=== PATIENT | female | born 1985 | race Caucasian/White ===

== ENCOUNTER 2023-06-23 09:33 | Emergency (ER) | payer MEDICAID, SELFPAY ==
[2023-06-23 09:33] VITALS: BP 130/63; PULSE 67; RESP 14; TEMP 36.1; O2SAT 97; BMI 26.9
--- NOTE | 2023-06-23 10:00 | RAD_ITS ---
STUDY: X-RAY CHEST REASON FOR EXAM: Female, 38 years old. Chest wall pain TECHNIQUE: PA and lateral views of the chest. COMPARISON: None. FINDINGS: The lungs are clear and expanded. There is no demonstrated pleural abnormality. Normal size heart. Normal mediastinum and letty. Normal visualized pulmonary arteries. Normal visualized aortic arch and descending thoracic aorta. Normal visualized thoracic spine. Normal visualized ribs, clavicles, and shoulders. There is no demonstrated abnormality of the visualized soft tissue structures of the upper abdomen. RAD/Chest PA and Lateral IMPRESSION: Normal x-ray examination of the chest. Electronically Signed: Alphonso Marquez MD at 10:25 EDT ,
--- NOTE | 2023-06-23 10:06 | ED.VIS.CHEST ---
HPI History of Present Illness Chief Complaint: Fall Informant: patient Onset/Context/Timing Onset: Days Activity at onset: sudden Timing: Continuous Quality: Positive for Sharp and Stabbing Location: Right Chest Current Severity: Moderate Maximum Severity: Moderate Worsened By: Movement of Arm, Movement of Torso and Breathing Relieved By: Remaining Still Associated Symptoms: Negative for Nausea, Vomiting, Diaphoresis, Dyspnea, Cough, Fever, Lightheadedness, Acid Reflux or Palpitations Narrative Narrative: 38-year-old female no seen past medical history. Slipped and fell in the shower on Saturday night about 7:00 injuring her right lateral rib cage. No prior history. Did not hit her head. No LOC. Denies other complaints. Hurts to move or take a deep breath. Prior Similar Symptoms: No CVD Risk Factors: Negative for Hypertension or Diabetes PE Risk Factors: Negative for Recent Travel/Surgery, Recent Immobilization, Prior DVT or PE, Cancer or OCP + Smoking + >/=35 TAD Risk Factors: Negative for Marfan's Syndrome PFSH PFSH Medical History no medical history no medical history Home Medications naproxen 500 mg tablet 500 mg PO BID PRN #20 tabs 11/03/15 [Rx Last Taken Unknown] Allergy/AdvReac Type Severity Reaction Status Date / Time No Known Allergies Allergy Verified 06/23/23 09:33 Social History Smoking Status: Current every day smoker tobacco type: cigarettes ROS ROS ED ROS Narrative Denies recent illness. Review of Systems ROS Unobtainable: Denies due to encephalopathy Constitutional Constitutional ED: Denies chills or fever(s) Eyes Eyes: Reports none ENT ENT ED: Denies ear pain Cardiovascular Cardiovascular: Reports chest pain Respiratory/Chest Respiratory/Chest: Denies cough or dyspnea Gastrointestinal Gastrointestinal: Denies abdominal pain Genitourinary Genitourinary ED: Denies dysuria or hematuria Musculoskeletal Musculoskeletal: Denies arthralgias, back pain or myalgias Integumentary Denies abscess or Abrasions Neurologic Neurologic: Denies headache(s) Psychiatric Psychiatric: Denies anxiety Endocrine Endocrinology: Denies cold intolerance Hematologic/Lymphatic Hematologic/Lymphatic: Denies easy bleeding, easy bruising or lymphadenopathy Allergic/Immunologic Allergic/Immunologic ED: Denies mouth swelling, tongue swelling or urticaria EXAM Physical Exam Narrative Exam Narrative: Well-appearing 38-year-old female. Vital signs stable afebrile. Pulse ox 97% on room air no hypoxia. She is standing as I enter the room. HEENT exam pupils round react to light. No facial or head or scalp trauma. C-spine and neck nontender. Thoracic and lumbar spine nontender. Right posterior lateral ribs are tender to palpation. Lungs clear to auscultation bilaterally. Heart regular rhythm rate about 70 no murmur. Anterior chest wall nontender. She has tenderness along her right lateral chest wall mid axillary line. There is a linear bruise along the bottom of her right lowest rib. There is no crepitance or subcu air. There is tenderness to palpation. Left rib cage nontender. Sternum nontender. Abdomen soft nontender. No peritoneal signs. The right upper and lower quadrants are nontender. Pelvic girdle intact. Moving all 4 extremities. Nontender no deformity. Normal range of motion. Normal strength and sensation. Neurologically she is awake and alert with no focal motor deficits. GCS 15. Const Vital Signs: 06/23/23 09:33 06/23/23 10:02 Temperature 97 F L Temperature Source Temporal Pulse Rate 67 Respiratory Rate 14 Respiratory Effort Normal Respiratory Depth Normal Respiratory Pattern Normal Blood Pressure 130/63 H Blood Pressure Mean 85 Pulse Ox 97 Oxygen Delivery Method Room Air Room Air Positive well nourished and well developed; Negative for obese, cachectic, contractures or unkempt General Appearance ED: well developed and NAD; Negative for unkempt, cachectic, contractures or pallor Nutritional Appearance: Negative for cachectic or obese HEENT Reports moist mucous membranes; Denies dry mucous membranes normocephalic and atraumatic; Negative for trauma or tenderness Mouth ED: No dry mucous membranes Mouth: No dry mucous membranes Eyes PERRL and EOMs intact bilaterally General Eye ED: Negative for pale conjunctiva or scleral icterus Neck no lymphadenopathy, supple and no JVD General: Negative for tenderness Chest Wall inspection of chest normal; Negative for palpation of chest normal Chest Narrative: Tenderness right lateral chest wall. Linear bruise along the right lowest rib cage. No crepitance or subcu air. Chest: tenderness Resp normal respiratory effort and clear to auscultation bilaterally Effort and Inspection: Negative for respiratory distress Auscultation: Negative for rales, rhonchi or wheezes Cardio regular rate, regular rhythm, S1 normal heart sound, S2 normal heart sound and no murmurs Rate: Negative for bradycardia or tachycardic Rhythm: Negative for abnormal rhythm GI normal to inspection, nondistended, normoactive bowel sounds, soft to palpation, non-tender, non-distended and no masses Auscultation: Negative for hyperactive bowel sounds Palpation: Negative for splenomegaly or mass Back/Spine no CVA tenderness and no thoracic nor lumbar tenderness General Back: Negative for CVA tenderness Cervical Spine: Negative for cervical spine tenderness Extremity normal to inspection General Extremety ED: Negative for edema, pulses abnormal or tenderness General Extremity: Negative for edema or pulses abnormal Neuro oriented x3 and CN's II-XII intact bilaterally Sensorium / Orientation: awake, alert, oriented to person, oriented to place and oriented to time; Negative for confused, lethargic or stuporous Motor Exam: strength 5/5 throughout; Negative for general weakness Psych mental status grossly normal Appearance: Negative for unkempt Attitude: No agitated Mood & Affect: Negative for depressed, anxious or tearful Skin no rashes or lesions noted and no wounds General Skin Exam: Negative for jaundice or pallor Rashes: No rashes noted Trauma: Negative for abrasion or laceration Image ED - Body Diagram Man: 1. Tenderness along the right lateral rib cage along the mid axillary line. 2. Same. MDM MDM MDM Narrative Medical decision making narrative: 38-year-old female slipped and fell in the shower Saturday night. Complaining of right lateral rib cage pain. Chest x-ray being obtained. Patient took ibuprofen prior to arrival did not want a thing for pain at this time. Repeat exam no change. Patient I went over x-ray. I showed her rib fracture. We did discuss possibility of other fractures that are being seen on the x-ray. She did not want narcotic pain medication. She will continue use ibuprofen and Tylenol. Ice to the area. Pillow to support the fractured rib. She requested a work excuse for light duty at work. 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 Radiography Chest X-Ray - ED: 2 View, Read by ED Physician, Heart, Lungs, Mediastinum, Chronic Changes and Right Rib Fx Diagnostic Testing: Chest x-ray, 2 views, AP lateral, interpreted by myself shows at least 1 right lower rib fracture distally on the lateral view. No pneumothorax. No hemothorax. No obvious other bony abnormalities. I did go over the x-ray with the patient. Discharge Plan Triage Chief Complaint: Fall ED Provider: Jeronimo Cox Dx/Rx/DC Orders Clinical Impression: Right rib fracture, Fall Instructions: ED Rib Fracture Prescriptions: No Action naproxen 500 MG tablet 500 mg PO BID PRN Qty: 20 0RF Primary Care Provider: Koki Butler Referrals: Koki Butler MD [Primary Care Provider] - As Needed Activity Restrictions/Additional Instructions: You have at least 1 fractured rib on the right lower side. Ice to the area. Motrin Advil or ibuprofen 600 mg 3-4 times a day. Tylenol in between. Use a pillow to support the rib. Or tape that area. This will take several weeks to begin to heal. The pain should progressively improve. If you develop significant shortness of breath you need to return to ensure you did not have a collapsed lung. You do not at this time. Light duty at work. Disposition Disposition: Home, Self Care
[2023-06-23 10:46] VITALS: BP 131/79; PULSE 58; RESP 18; TEMP 36.2; O2SAT 99
== END 2023-06-23 10:46 | disposition home or self-care (01) ==
LOC: ED 10:39
PROVIDERS: Emergency Provider Emergency Medicine; PCP Internal Medicine; Visit Provider Emergency Medicine
DX: S22.31XA Fracture of one rib, right side, initial encounter for closed fracture (principal); F17.210 Nicotine dependence, cigarettes, uncomplicated; W18.2XXA Fall in (into) shower or empty bathtub, initial encounter
CPT/HCPCS: 71046; 99282

== ENCOUNTER 2023-07-31 10:50 | Emergency (ER) | payer MEDICAID, SELFPAY ==
[2023-07-31 10:50] VITALS: BP 128/90; PULSE 79; RESP 18; TEMP 36.1; O2SAT 100; BMI 26.9
--- NOTE | 2023-07-31 11:05 | EKG12_ITS ---
Test Reason : CP Blood Pressure : / mmHG Vent. Rate : 077 BPM Atrial Rate : 077 BPM P-R Int : 132 ms QRS Dur : 084 ms QT Int : 366 ms P-R-T Axes : 053 044 028 degrees QTc Int : 414 ms Normal sinus rhythm Normal ECG When compared with ECG of 03-NOV-2015 13:32, No significant change was found Confirmed by Spenser Swartz ([id number]), business editor KAYCE MASSEY ([id number]) on 08/06/2023 8:05:05 AM Referred By: JERRELL/TA Confirmed By:Spenser Swartz
--- NOTE | 2023-07-31 11:06 | ED.VIS.CHEST ---
HPI History of Present Illness Chief Complaint: Chest Pain Detail of Chief Complaint: Onset yesterday while at work Informant: patient Onset/Context/Timing Onset: Today and Yesterday Activity at onset: sudden Timing: Intermittent and Waxes and wanes Quality: Positive for Aching Location: Left Parasternal (Concerned because of tingling in left hand today.) Current Severity: Mild Maximum Severity: Moderate Worsened By: Nothing Relieved By: Nothing Associated Symptoms: Negative for Nausea, Vomiting, Diaphoresis, Dyspnea, Cough, Fever, Lightheadedness, Acid Reflux or Palpitations Narrative Narrative: Patient 38-year-old woman. Patient is concerned because of chest pain that she had yesterday at work. She felt her body was not its normal self. She had a nurse at work to check her blood pressure and was sunitha high . Pressure was 154/92. She states normally her pressure is much lower. She denies headache. She did complain of light sensitivity. She denied double vision blurred vision. She denies ringing or ears decreased hearing. No trouble speech or swallowing. She denies neurologic symptoms. Patient states she quit smoking 6 months ago. Maternal grandfather had massive SC at the age of 52. Patient states she is active now. She denies symptoms while she is active i.e. running etc. Prior Similar Symptoms: No Recent Illness/Hospitalization: No CVD Risk Factors: Positive for Smoking (Former smoker, quit 6 months ago); Negative for Hypertension, Diabetes, Hypercholesterolemia or Family History 1' </=55 PE Risk Factors: Negative for Recent Travel/Surgery, Recent Immobilization, Prior DVT or PE, Cancer or OCP + Smoking + >/=35 TAD Risk Factors: Negative for Marfan's Syndrome, Hypertension or Family History PFSH PFSH Home Medications ?Medication ?Instructions ?Recorded ?Last Taken ?Type naproxen 500 mg tablet 500 mg PO BID PRN #20 tabs 11/03/15 Unknown Rx Allergy/AdvReac Type Severity Reaction Status Date / Time No Known Allergies Allergy Verified 07/31/23 10:50 Social History (Updated 07/31/23 @ 11:[address] Blanco Ayala MD) Smoking Status: Former smoker substance use type: does not use ROS ROS ED Constitutional Constitutional ED: Denies chills, fever(s), subjective or sweats Eyes Eyes: Reports none ENT ENT ED: Denies rhinorrhea or sore throat Cardiovascular Cardiovascular: Reports as per HPI; Denies orthopnea or paroxysmal nocturnal dyspnea Respiratory/Chest Respiratory/Chest: Denies cough, dyspnea, dyspnea on exertion, orthopnea or paroxysmal nocturnal dyspnea Gastrointestinal Gastrointestinal: Denies abdominal pain, melena, nausea or vomiting Musculoskeletal Musculoskeletal: Denies arthralgias, back pain, myalgias or neck pain Integumentary Denies rash Neurologic Neurologic: Reports paresthesias LUE Psychiatric Psychiatric: Reports anxiety Hematologic/Lymphatic Hematologic/Lymphatic: Denies easy bleeding or easy bruising EXAM Physical Exam Const Vital Signs: 07/31/23 10:50 07/31/23 11:14 Temperature 96.9 F L Temperature Source Temporal Pulse Rate 79 Respiratory Rate 18 Blood Pressure 128/90 H Blood Pressure Mean 102 Pulse Ox 100 Oxygen Delivery Method Room Air Positive well nourished and well developed General Appearance ED: well developed and NAD; Negative for pallor HEENT Reports moist mucous membranes normocephalic and atraumatic Eyes PERRL and EOMs intact bilaterally General Eye ED: Negative for pale conjunctiva or scleral icterus Neck no lymphadenopathy, supple and no JVD Chest Wall palpation of chest normal Resp normal respiratory effort and clear to auscultation bilaterally Cardio regular rate, regular rhythm, S1 normal heart sound, S2 normal heart sound and no murmurs GI normal to inspection, nondistended, normoactive bowel sounds, soft to palpation, non-tender and non-distended; Negative for hepatosplenomegaly Back/Spine no CVA tenderness Neuro oriented x3 and CN's II-XII intact bilaterally Sensorium / Orientation: awake and alert Psych mental status grossly normal Skin no rashes or lesions noted and no wounds General Skin Exam: Negative for jaundice or pallor Heart Score History: Slightly/Non-Suspicious ECG: Normal Age: </= 45 years Risk Factors: 1 or 2 Risk Factors Score: 1 MDM MDM MDM Narrative Medical decision making narrative: Differential diagnosis is cardiac versus noncardiac. Noncardiac would be musculoskeletal, pain of unknown etiology, pulmonary, GI. Will obtain EKG, troponin with 2-hour troponin. Will obtain BMP to assess renal function. CBC to assess white count and differential and rule out anemia. Clinically she not anemic. Chest x-ray to determine there is evidence of cardiomegaly, hiatal hernia lung pathologies or explain her pain. Patient is PERC negative. Wells score for PE is less than 3. History & Record Review Additional record(s) reviewed:: Other Lab Data Labs: Laboratory Results - last 24 hr 07/31/23 11:10 WBC 6.4 RBC 4.19 L Hgb 12.7 Hct 39.1 MCV 93.3 MCH 30.3 MCHC 32.5 RDW Std Deviation 41.8 RDW Coeff of [place] 12.2 Plt Count 198 MPV 10.7 Immature Gran % (Auto) 0.600 Neut % (Auto) 66.9 Lymph % (Auto) 23.6 [place] % (Auto) 7.3 Eos % (Auto) 0.8 Baso % (Auto) 0.8 Absolute Neuts (auto) 4.3 Absolute Lymphs (auto) 1.52 Nucleated RBC % 0 Sodium 139 Potassium 3.5 Chloride 108 H Carbon Dioxide 28.0 Anion Gap 3 L BUN 9 Creatinine 0.72 Estim Creat Clear Calc 104.54 Est GFR (MDRD) Af Amer 118 Est GFR (MDRD) Non-Af 97 BUN/Creatinine Ratio 12.5 Glucose 100 Calcium 8.7 Troponin I High Sens < 3 L Troponin is less than 3. This would exclude cardiac disease. Radiography Chest X-Ray - ED: 2 View and Read by ED Physician (Cardiac silhouette and size normal. Mediastinum normal. Lung parenchyma normal. Osseous trucks unremarkable. There is improved reviewed interpreted by me at 1141) Diagnostic Testing: Clinical Impression(s) from Imaging Studies Chest X-Ray 07/31/23 11:29 IMPRESSION: No radiographic evidence of acute cardiopulmonary disease. Electronically Signed: Faizan aHncock MD at 11:40 EDT , EKG Initial EKG: Attestation: I personally reviewed and interpreted this EKG as follows: Interpretation: Sinus Rhythm (Rate is 77. EKG is normal. HI interval is 132 ms. Cures duration 84 ms. QT duration 266 ms. [place] is normal) Treatment and Re-Evaluation :: Patient was informed of laboratory results. She was informed that her chest pain is not due to her heart. At this point she will be discharged home. Her pressure is presently 110/63. Discharge Plan Triage Chief Complaint: Chest Pain ED Provider: Blanco Ayala Dx/Rx/DC Orders Clinical Impression: Chest pain, Elevated blood pressure reading without diagnosis of hypertension, Paresthesia of left upper extremity Instructions: ED Chest Pain, Noncardiac, ED Chest Pain, Uncertain Cause Prescriptions: No Action naproxen 500 MG tablet 500 mg PO BID PRN Qty: 20 0RF Primary Care Provider: Koki Butler Referrals: Koki Butler MD [Primary Care Provider] - 5-7 Days Print Language: Faroese Disposition Disposition: Home, Self Care
[2023-07-31] MEDS: Aspirin 81 MG TAB.CHEW 324 MG PO (11:17)
[2023-07-31 11:20] LABS: Absolute Lymphocyte Count 1.52 X10^3/uL (0.83-4.51); Absolute Neutrophil Count 4.3 X10^3/uL (2.0-7.7); Basophil# 0.05 X10^3/uL; Basophil% 0.8 % (0-1); Eosinophil# 0.05 X10^3/uL; Eosinophils% 0.8 % (0-5); Hematocrit 39.1 % (37-47); Hemoglobin 12.7 g/dL (12.0-15.0); Lymphocyte # 1.52 X10^3/ul (0.83-4.51); Lymphocyte % 23.6 % (19-41); Mean Corp Hgb Conc 32.5 g/dL (32-36); Mean Corpuscular Hgb 30.3 pg (27.0-32.0); Mean Corpuscular Volume 93.3 fL (81-99); Mean Platelet Vol. 10.7 fl (6.2-12.0); Monocyte# 0.47 X10^3/uL; Monocyte% 7.3 % (0-10); NRBC Flagged by Analyzer 0 % (0-5); Neutrophil % 66.9 % (47-70); Platelet Count 198 K/mm3 (150-450); RBC Distribution Width CV 12.2 % (11.6-14.6); RBC Distribution Width SD 41.8 fl (35.1-43.9); Red Blood Count 4.19 M/mm3 (4.2-5.4); White Blood Count 6.4 K/mm3 (4.4-11.0)
--- NOTE | 2023-07-31 11:29 | RAD_ITS ---
INDICATION: chest pain EXAMINATION/TECHNIQUE: X-RAY - XR Chest 2 Views COMPARISON: Prior study dated: 06/23/2023 FINDINGS: LINES/DEVICES: None. LUNGS: No consolidation, edema or effusion. No pneumothorax. MEDIASTINUM AND CARDIOVASCULAR STRUCTURES: Cardiac silhouette not enlarged. Central airways and mediastinal contour are unremarkable. BONES AND SOFT TISSUES: Unremarkable. RAD/Chest PA and Lateral IMPRESSION: No radiographic evidence of acute cardiopulmonary disease. Electronically Signed: Faizan Hancock MD at 11:40 EDT ,
[2023-07-31 11:37] LABS: Anion Gap 3 (5-15); BUN 9 mg/dL (7-18); BUN/Creat Ratio 12.5 RATIO (10-20); Calcium,Total 8.7 mg/dL (8.5-10.1); Chloride 108 mmol/L (98-107); Creatinine, Serum 0.72 mg/dL (0.55-1.02); EST Glomerular Filtration Rate 97 mL/min (>60); Est Glom Filt Rate - Afr Amer 118 mL/min (>60); Estimated Creatinine Clearance 104.54 ml/min; Glucose 100 mg/dL (74-106); Potassium 3.5 mmol/L (3.5-5.1); Sodium Level 139 mmol/L (136-145); Troponin-I HS (w/2H Reflex) < 3 pg/mL (3.0-54.0)
[2023-07-31 12:03] VITALS: BP 115/84; PULSE 78; RESP 12; TEMP 37.1; O2SAT 100
[2023-07-31 13:15] LABS: Reflex Troponin-HS? (from REC) Y
== END 2023-07-31 12:05 | disposition home or self-care (01) ==
PROVIDERS: Emergency Provider Emergency Medicine; PCP Internal Medicine; Visit Provider Emergency Medicine
DX: R07.9 Chest pain, unspecified (principal); Z87.891 Personal history of nicotine dependence; R03.0 Elevated blood-pressure reading, without diagnosis of hypertension; R20.2 Paresthesia of skin
CPT/HCPCS: 71046; 80048; 84484; 85025; 93005; 99284; A4216